=== PATIENT | male | born 1950 | race American Indian/Alaskan Native ===

== ENCOUNTER 2019-04-14 00:42 | Emergency (ER) | payer OTHER, MEDICARE ==
[2019-04-14 01:30] VITALS: BP 128/82
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
[2019-04-14] MEDS ORDERED: IBUPROFEN 800 MG TAB PO ONE (02:41)
== END 2019-04-14 02:43 | disposition home or self-care (01) ==
LOC: ED 00:42
DX: S16.1XXA Strain of muscle, fascia and tendon at neck level, initial encounter (principal); V89.2XXA Person injured in unspecified motor-vehicle accident, traffic, initial encounter; Y93.89 Activity, other specified; Y92.410 Unspecified street and highway as the place of occurrence of the external cause; Y99.8 Other external cause status
CPT/HCPCS: 72040